=== PATIENT | female | born 1955 | race Caucasian/White ===

== ENCOUNTER → 2017-02-23 | Outpatient (CLI) | payer MEDICAID | LOC: FIMAGING 17:12 | PROVIDERS: ATTEND Family Medicine | DX: S92.412A Displaced fracture of proximal phalanx of left great toe, initial encounter for closed fracture (principal) ==

== ENCOUNTER 2017-07-19 15:12 | Emergency (ER) | payer MEDICAID ==
[2017-07-19 15:22] VITALS: TEMP 97.2
[2017-07-19] MEDS ORDERED: IBUPROFEN 600 MG TAB PO ONE (17:35)
--- NOTE | 2017-07-19 17:38 | EDPHY ---
H & P Time Seen by Provider: 07/19/17 17:23 HPI/ROS: CHIEF COMPLAINT: Unable to walk following the fall HISTORY OF PRESENT ILLNESS: This is a 62-year-old female with a history of developmental delay and chronic left hip dysplasia who was at her adult daycare program today. Her caregiver arrived to bring her home from the adult daycare center, she was informed by the staff that the patient had fallen. No further details regarding the fall are available. Caregiver noted that the patient was unable to ambulate. She typically walks with a walker. Patient has a significant amount of spasticity in her lower extremities and has a very antalagic gait. She seems to be complaining of discomfort in her left hip. There is no history of head injury or loss of consciousness. No nausea or vomiting since the event. No obvious traumatic findings to the upper extremities. Patient was in usual state of health prior to this event. REVIEW OF SYSTEMS: Aside from elements discussed in the HPI, a comprehensive 10-point review of systems was reviewed and is negative. PAST MEDICAL HISTORY: Significant developmental delay, nonverbal. SOCIAL HISTORY: Lives with a caregiver 28/05. VITAL SIGNS Reviewed by me. GENERAL: Developmental delay, nonverbal, obvious spasticity of the right upper extremity, and deformities of the lower extremities. HEENT: Atraumatic. Eyes: Pupils equal round reactive to light. No facial trauma noted. Mouth: Normal occlusion. Neck: supple with no adenopathy. No obvious tenderness to palpation. LUNGS: Clear to auscultation. Superficial abrasion is across the right scapula. No crepitus . CARDIAC: Regular rate and rhythm, no rubs, murmurs or gallops. ABDOMEN: Soft, no obvious tenderness, nondistended, bowel sounds normal. BACK: No trauma noted. Indication of tenderness over the lumbar spine or sacrum. EXTREMITIES: Patient seems uncomfortable when being rolled onto either the right or the left hip. Internal and external rotation at the right hip did not appear to be painful to the patient. Right lower extremity has some spastic features. Limited range of motion at the left hip. Does not appear to be uncomfortable for the patient. uncomfortable 1 No edema. Range of motion is normal throughout. NEURO: At baseline per caregiver. Patient herself is nonverbal. SKIN: Warm and dry, no rash. PSYCHIATRIC: Unable to assess Smoking Status: Never smoked Constitutional: Initial Vital Signs Temperature (C) 36.2 C 07/19/17 15:15 Allergies/Adverse Reactions: No Known Allergies Allergy (Unverified 07/19/17 15:21) Home Medications: Medication Instructions Recorded Miralax 17 gm (*) 07/19/17 Thyroid 07/19/17 Medical Decision Making - Diagnostics Imaging Results: Imaging Impressions Hip X-Ray 07/19/17 17:13 Impression: No acute osseous abnormalities. Congenital left hip dysplasia, subluxation and osteoarthrosis, similar to comparison exam. Pelvis CT 07/19/17 17:36 Impression: 1. No acute hip fracture. 2. Chronic left hip subluxation and remodeling related to developmental dysplasia of the hip. Findings discussed with Emergency Department physician, Rosibel Montoya MD, on , 1828 hours. ED Course/Re-evaluation: Patient's initial vital signs are quite limited. On my examination she is not tachycardic, having a heart rate of approximately 82. Brisk capillary refill. Pulses are 2+ and equal throughout. Patient's respiratory rate is unlabored. Rate of 16 on my examination. Plain x-rays were initially obtained which do not demonstrate any acute pathology in the left hip. On my examination it is difficult to tell which hip seems other the patient more. Caregiver is concerned regarding potential sacral or coccyx fracture. Patient did have a CT scan of her pelvis obtained which demonstrates no acute traumatic findings. There is chronic dysplasia of the left hip. Patient received ibuprofen 600 mg on arrival to the emergency department. Following her imaging studies the patient was ambulated utilizing a walker. She appears to be at her baseline gait per her caregiver. Caregiver is comfortable taking the patient home. She will continue to observe over the next 24-48 hours for the development of any new traumatic concerns, any ecchymosis developing, any swelling, or any indication regarding occult trauma at this point. Differential Diagnosis: Differential diagnosis of this patient's fall was considered including but not limited to intracranial injury, long bone and pelvic bone fracture, spinal injury, intrathoracic injury, extremity injury, intra-abdominal injury, lacerations, abrasions, and contusions. - Data Points Medications Given: Discontinued Medications Ibuprofen (Motrin) 600 mg PO EDNOW ONE Stop: 07/19/17 17:36 Last Admin: 07/19/17 17:43 Dose: Not Given Ibuprofen (Motrin Oral Solution) 600 mg PO EDNOW ONE Stop: 07/19/17 17:42 Last Admin: 07/19/17 17:50 Dose: 600 mg Departure - Departure Disposition: Home, Routine, Self-Care Clinical Impression: Left hip pain Condition: Good Instructions: Hip Pain (ED) Additional Instructions: 1. Use Tylenol and ibuprofen as directed on the packaging as needed for pain over the next few days. 2. Follow up with your primary care provider no later than Sunday. 3. Return to the ED for worsening of condition. Referrals: Luis Brasher MD [Primary Care Provider] - As per Instructions
[2017-07-19] MEDS ORDERED: IBUPROFEN SUSP 100 MG/5 ML UDCUP PO ONE (17:41)
== END 2017-07-19 19:52 | disposition home or self-care (01) ==
DX: S79.912A Unspecified injury of left hip, initial encounter (principal); W19.XXXA Unspecified fall, initial encounter; Y92.210 Daycare center as the place of occurrence of the external cause; Y99.8 Other external cause status

== ENCOUNTER 2017-07-20 13:29 | Emergency (ER) | payer MEDICAID ==
--- NOTE | 2017-07-20 15:06 | EDPHY ---
HPI/HX/ROS/PE/MDM Narrative: CHIEF COMPLAINT: Left hip pain HPI: The patient is a developmentally delayed and non-verbal 62 y/o female arriving with her caregiver for the second time in 24 hours for evaluation of hip pain. She fell yesterday at her adult daycare program and was evaluated in the ED. A CT of her pelvis showed no acute process at that time she was ambulatory with assistance at discharge. When her caregiver attempted to move her last night in bed the patient began screaming. Her caregiver describes trying to roll the patient onto her abdomen, but then the patient started screaming and has since been sitting with her knees drawn in towards her body. Her caregiver thinks the patient's left hip is hurting again. The patient is unable to contribute to history due to developmental delay. Her caregiver has not noticed signs of dysuria or UTI, trauma, dyspnea, or other symptoms. REVIEW OF SYSTEMS: Aside from elements discussed in the HPI, a comprehensive 10-point review of systems was reviewed and is negative. PMH: Significant developmental delay, non-verbal, left hip dysplasia Prior medical records reviewed including ED visit 07/19/17 for left hip pain. SOCIAL HISTORY: Caregiver at bedside. PCP: Dr. Brasher PHYSICAL EXAM: General:Patient is alert, in no acute distress. Chronic developmental delay noted ENT:Eyes are normal to inspection. ENT inspection normal. Neck: Normal inspection. Full range of motion. Respiratory:No respiratory distress. Breath sounds normal bilaterally. Cardiovascular: Regular rate and rhythm. Strong peripheral pulses. Normal cap refill. Abdomen:No apparent abdominal tenderness to palpation. There are no peritoneal signs. There are normal bowel sounds. Back: Normal to inspection. No apparent tenderness to palpation. Skin: Normal color. No rash. Warm and dry. Extremities: Baseline contractures to both arms and hands. No apparent hip tenderness with palpation or ROM. Neuro: Alert. Mental status at baseline per caregiver. Moving all extremities. ED Course: IV established. Basic labs and UA ordered. Abd/pelvis CT ordered. 1730: Reassessed patient and discussed work up with her caregiver. Her CT shows 4 fractured ribs on the left side - no evidence of solid organ injury or PTX. She will be discharged with script for Lortab elixir and standard rib fracture care and follow up instructions. Return precautions given. Caregiver agrees with plan. - Data Points Imaging: Discussed imaging studies w/ outbound call center representative Radiologist, I viewed and interpreted images myself Laboratory Results: Laboratory Results 07/20/17 15:18 07/20/17 15:18 07/20/17 07/20/17 15:18 15:18 WBC 11.77 10^3/uL H 10^3/uL (3.80-9.50) RBC 3.89 10^6/uL L 10^6/uL (4.18-5.33) Hgb 11.1 g/dL L g/dL (12.6-16.3) Hct 35.2 % L % (38.0-47.0) MCV 90.5 fL fL (81.5-99.8) MCH 28.5 pg pg (27.9-34.1) MCHC 31.5 g/dL L g/dL (32.4-36.7) RDW 14.4 % % (11.5-15.2) Plt Count 276 10^3/uL 10^3/uL (150-400) MPV 10.8 fL fL (8.7-11.7) Neut % (Auto) 83.3 % H % (39.3-74.2) Lymph % (Auto) 8.2 % L % (15.0-45.0) [place] % (Auto) 7.6 % % (4.5-13.0) Eos % (Auto) 0.0 % L % (0.6-7.6) Baso % (Auto) 0.3 % % (0.3-1.7) Nucleat RBC Rel Count 0.0 % % (0.0-0.2) Absolute Neuts (auto) 9.81 10^3/uL H 10^3/uL (1.70-6.50) Absolute Lymphs (auto) 0.96 10^3/uL L 10^3/uL (1.00-3.00) Absolute Monos (auto) 0.89 10^3/uL H 10^3/uL (0.30-0.80) Absolute Eos (auto) 0.00 10^3/uL L 10^3/uL (0.03-0.40) Absolute Basos (auto) 0.04 10^3/uL 10^3/uL (0.02-0.10) Absolute Nucleated RBC 0.00 10^3/uL 10^3/uL (0-0.01) Immature Gran % 0.6 % % (0.0-1.1) Immature Gran # 0.07 10^3/uL 10^3/uL (0.00-0.10) Sodium 142 mEq/L mEq/L (134-144) Potassium 4.1 mEq/L mEq/L (3.5-5.2) Chloride 104 mEq/L mEq/L (97-110) Carbon Dioxide 26 mEq/l mEq/l (22-31) Anion Gap 12 mEq/L mEq/L (8-16) BUN 17 mg/dL mg/dL (7-23) Creatinine 0.8 mg/dL mg/dL (0.6-1.0) Estimated GFR > 60 Glucose 103 mg/dL H mg/dL (70-100) Calcium 9.7 mg/dL mg/dL (8.5-10.4) General Time Seen by Provider: 07/20/17 14:49 Initial Vital Signs: Initial Vital Signs Temperature (C) 36.7 C 07/20/17 13:35 Heart Rate 98 07/20/17 13:35 Respiratory Rate 16 07/20/17 13:35 Blood Pressure 159/97 H 07/20/17 13:35 O2 Sat (%) 91 L 07/20/17 13:35 O2 Delivery Mode Room Air Allergies/Adverse Reactions: No Known Allergies Allergy (Unverified 07/19/17 15:21) Home Medications: Medication Instructions Recorded Miralax 17 gm (*) 07/19/17 Thyroid 07/19/17 Hydrocod/APAP 7.5/325 in 15Ml 5 - 10 ml PO Q4 PRN #90 ml 07/20/17 [Hycet Oral Liquid (*) 7.5MG-325MG/15ML] Departure - Departure Disposition: Home, Routine, Self-Care Clinical Impression: Multiple rib fractures Condition: Good Instructions: Hydrocodone/Acetaminophen (By mouth), Rib Fracture (ED) Additional Instructions: 1. Administer Lortab elixir as prescribed as needed for pain. 2. Rib fractures can take many weeks to heal. Follow up with the patient's primary care provider for unimproving symptoms over the next couple weeks. 3. Return to the ED for worsening of condition. Referrals: Luis Brasher MD [Primary Care Provider] - As per Instructions Prescriptions: Hydrocod/APAP 7.5/325 in 15Ml [Hycet Oral Liquid (*) 7.5MG-325MG/15ML] 5 - 10 ml PO Q4 PRN #90 ml PRN Reason: Pain, Severe Report Scribed for: Mathew Louis Report Scribed by: Kelly Nickerson Date of Report: 07/20/17 Time of Report: 15:51 Physician Review and Approval Statement: Portions of this note were transcribed by an ED scribe. I personally performed the history, physical exam, and medical decision making; and confirm the accuracy of the information in the transcribed note.
[2017-07-20 15:43] LABS: % IMMATURE GRANULYOCYTES 0.6 % (0.0-1.1); ABSOLUTE IMMATURE GRANULOCYTES 0.07 10^3/uL (0.00-0.10); ADD DIFF? NO; ADD MORPH? NO; ADD SCAN? NO; ATYPICAL LYMPHOCYTE FLAG 0 (0-99); FRAGMENT RBC FLAG 0 (0-99); HEMATOCRIT 35.2 % (38.0-47.0); HEMOGLOBIN 11.1 g/dL (12.6-16.3); LEFT SHIFT FLG 0 (0-99); LIPEMIA HEMOLYSIS FLAG 80 (0-99); MEAN CELL HEMOGLOBIN 28.5 pg (27.9-34.1); MEAN CELL HEMOGLOBIN CONCENTR. 31.5 g/dL (32.4-36.7); MEAN CELL VOLUME 90.5 fL (81.5-99.8); MEAN PLATELET VOLUME 10.8 fL (8.7-11.7); PLATELET CLUMPS FLAG 30 (0-99); PLATELET COUNT 276 10^3/uL (150-400); RED BLOOD CELL COUNT 3.89 10^6/uL (4.18-5.33); RED CELL DISTRIBUTION WIDTH 14.4 % (11.5-15.2)
[2017-07-20 15:56] LABS: ANION GAP 12 mEq/L (8-16); CALCIUM 9.7 mg/dL (8.5-10.4); CARBON DIOXIDE 26 mEq/l (22-31); CHLORIDE 104 mEq/L (97-110); CREATININE 0.8 mg/dL (0.6-1.0); GLOMERULAR FILTRATION RATE > 60; GLUCOSE 103 mg/dL (70-100); POTASSIUM 4.1 mEq/L (3.5-5.2); SODIUM 142 mEq/L (134-144)
[2017-07-20] MEDS ORDERED: IOPAMIDOL (ISOVUE-300) 100 ML BTL ONE (16:41)
[2017-07-20] MEDS ORDERED: HYDROCOD/APAP 7.5/325 IN 15ML UDCUP PO ONE (17:35)
[2017-07-20 18:53] VITALS: BP 138/98; PULSE 85; RESP 20; TEMP 97.9; O2SAT 90
== END 2017-07-20 18:53 | disposition home or self-care (01) ==
DX: S22.42XD Multiple fractures of ribs, left side, subsequent encounter for fracture with routine healing (principal); W19.XXXD Unspecified fall, subsequent encounter
CPT/HCPCS: Q9967

== ENCOUNTER 2018-06-30 19:28 | Inpatient (IN) | payer MEDICAID ==
--- NOTE | 2018-06-30 20:16 | EDPHY ---
H & P Stated Complaint: cough x 1 week causing vomiting seen by pcp on06/25 Time Seen by Provider: 06/30/18 20:14 - Personal History Current Tetanus/Diphtheria Vaccine: Yes Current Tetanus Diphtheria and Acellular Pertussis (TDAP): Yes - Medical/Surgical History Hx Asthma: No Hx Chronic Respiratory Disease: No Hx Diabetes: No Hx Cardiac Disease: No Hx Renal Disease: No Hx Cirrhosis: No Hx Alcoholism: No Hx HIV/AIDS: No Hx Splenectomy or Spleen Trauma: No Other PMH: Developmentally delayed. Hip displagia. RA. - Social History Smoking Status: Never smoked Constitutional: Initial Vital Signs Temperature (C) 37.2 C 06/30/18 19:33 Heart Rate 83 06/30/18 19:33 Respiratory Rate 20 06/30/18 19:33 Blood Pressure 119/70 06/30/18 19:33 O2 Sat (%) 86 L 06/30/18 19:33 O2 Delivery Mode Nasal Cannula O2 (L/minute) 2 Allergies/Adverse Reactions: No Known Allergies Allergy (Unverified 07/19/17 15:21) Home Medications: Medication Instructions Recorded Guar Gum [Benefiber/Nutrisource 1 each PO DAILY 06/30/18 Fiber (*)] Herbals/Supplements -Info Only 1 ea PO DAILY 06/30/18 Levothyroxine [Synthroid 50 mcg 50 mcg PO DAILY06 06/30/18 (*)] Polyethylene Glycol 3350 [Miralax 17 gm PO EVERY OTHER DAY 06/30/18 17 gm (*)] Medical Decision Making - Diagnostics Imaging Results: Imaging Impressions Chest X-Ray 06/30/18 19:54 Impression: No pneumonia. Imaging: I viewed and interpreted images myself ED Course/Re-evaluation: CHIEF COMPLAINT: Cough, nausea HISTORY OF PRESENT ILLNESS: The patient is a developmentally delayed 63 y/o female arriving with her skin care specialist for a cough and nausea, onset 1 week ago. She was seen by her PCP on 06/25 , 5 days ago, without a clear diagnosis. Today the coughing exacerbated; she has been vomiting due to the coughing. It is unknown if she has aspirated on the emesis. REVIEW OF SYSTEMS: Unable to obtain secondary to patient's developmental delay. PHYSICAL EXAM: HR, BP, O2 Sat, RR. Temp noted General Appearance: Alert, well hydrated, and non-toxic appearing. Head: Atraumatic without scalp tenderness or obvious injury Eyes: Pupils equal, round, reactive to light and accommodation, EOMI, no trauma , no injection. Ears: Clear bilaterally, no perforation, normal landmarks Nose: Atraumatic, no rhinorrhea, clear. Throat: There is no erythema or exudates, no lesions, normal tonsils, mucus membranes moist. Neck: Supple, 2+ carotid upstroke, nontender, no lymphadenopathy. Respiratory: Coarse rhonchi throughout. No retractions, no distress, no wheezes , and no accessory muscle use. Cardiovascular: Regular rate and rhythm, no murmurs, rubs, or gallops. Bilateral carotid, radial, dorsalis pedis, and posterior tibial pulses intact. Good capillary refill all extremities. Gastrointestinal: Abdomen is soft, nontender, non-distended, no masses, no rebound, no guarding, no peritoneal signs. Musculoskeletal: Normal active ROM of all extremities, atraumatic. Neurological: Alert, appropriate, and interactive. The patient has normal DTRs and non-focal cranial nerves, motor, sensory, and cerebellar exam. Skin: No rashes, good turgor, no nodules on palpation. 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 MEDICAL DECISION MAKING: The patient is a developmentally delayed 63 y/o female arriving with her skin care specialist for a cough and nausea, onset 1 week ago. On exam she has coarse rhonchi throughout. Chest x-ray and labs ordered; DuoNeb administered. 2054: I consulted with Dr. Posada, hospitalist, regarding this patient. He accepts admission of this patient for post-tussive emesis, probable aspiration pneumonia, and hypoxemia. Her lactate is normal; she does not meet septic criteria a. 3gm IV Unasyn administered. 2105: I reviewed patient's chest x-ray, there is a right-sided aspirational pneumonia. 2220: Patient has been transferred to the floor. - Data Points Laboratory Results: Laboratory Results 06/30/18 21:30 06/30/18 21:30 06/30/18 06/30/18 06/30/18 21:30 21:30 20:43 WBC 8.86 10^3/uL 10^3/uL (3.80-9.50) RBC 4.76 10^6/uL 10^6/uL (4.18-5.33) Hgb 13.5 g/dL g/dL (12.6-16.3) Hct 42.8 % % (38.0-47.0) MCV 89.9 fL fL (81.5-99.8) MCH 28.4 pg pg (27.9-34.1) MCHC 31.5 g/dL L g/dL (32.4-36.7) RDW 14.1 % % (11.5-15.2) Plt Count 290 10^3/uL 10^3/uL (150-400) MPV 10.5 fL fL (8.7-11.7) Neut % (Auto) 59.6 % % (39.3-74.2) Lymph % (Auto) 20.3 % % (15.0-45.0) [place] % (Auto) 13.2 % H % (4.5-13.0) Eos % (Auto) 6.1 % % (0.6-7.6) Baso % (Auto) 0.5 % % (0.3-1.7) Nucleat RBC Rel Count 0.0 % % (0.0-0.2) Absolute Neuts (auto) 5.28 10^3/uL 10^3/uL (1.70-6.50) Absolute Lymphs (auto) 1.80 10^3/uL 10^3/uL (1.00-3.00) Absolute Monos (auto) 1.17 10^3/uL H 10^3/uL (0.30-0.80) Absolute Eos (auto) 0.54 10^3/uL H 10^3/uL (0.03-0.40) Absolute Basos (auto) 0.04 10^3/uL 10^3/uL (0.02-0.10) Absolute Nucleated RBC 0.00 10^3/uL 10^3/uL (0-0.01) Immature Gran % 0.3 % % (0.0-1.1) Immature Gran # 0.03 10^3/uL 10^3/uL (0.00-0.10) PT 12.4 SEC SEC (12.0-15.0) INR 0.90 (0.83-1.16) APTT 27.2 SEC SEC (23.0-38.0) VBG Lactic Acid Sodium 141 mEq/L mEq/L (135-145) Potassium 4.7 mEq/L mEq/L (3.3-5.0) Chloride 100 mEq/L mEq/L (97-110) Carbon Dioxide 32 mEq/l H mEq/l (22-31) Anion Gap 9 mEq/L mEq/L (8-16) BUN 20 mg/dL mg/dL (7-23) Creatinine 1.0 mg/dL mg/dL (0.6-1.0) Estimated GFR 56 Glucose 112 mg/dL H mg/dL (70-100) Calcium 9.9 mg/dL mg/dL (8.5-10.4) Total Bilirubin 0.2 mg/dL mg/dL (0.1-1.4) 06/30/18 20:30 WBC RBC Hgb Hct MCV MCH MCHC RDW Plt Count MPV Neut % (Auto) Lymph % (Auto) [place] % (Auto) Eos % (Auto) Baso % (Auto) Nucleat RBC Rel Count Absolute Neuts (auto) Absolute Lymphs (auto) Absolute Monos (auto) Absolute Eos (auto) Absolute Basos (auto) Absolute Nucleated RBC Immature Gran % Immature Gran # PT INR APTT VBG Lactic Acid 0.9 mmol/L mmol/L (0.7-2.1) Sodium Potassium Chloride Carbon Dioxide Anion Gap BUN Creatinine Estimated GFR Glucose Calcium Total Bilirubin Medications Given: Albuterol/Ipratropium (Duoneb) 3 ml IH QID MOE Stop: 12/27/18 20:59 Last Admin: 06/30/18 21:51 Dose: 3 ml Discontinued Medications Albuterol/Ipratropium (Duoneb) 3 ml IH EDNOW ONE Stop: 06/30/18 20:19 Last Admin: 06/30/18 20:24 Dose: 3 ml Azithromycin (Zithromax Oral Liquid) 500 mg PO ONCE ONE Stop: 06/30/18 22:16 Last Admin: 06/30/18 22:16 Dose: 500 mg Ampicillin Sodium/Sulbactam (Sodium 3 gm/ Sodium Chloride) 100 mls @ 200 mls/ hr IV EDNOW ONE PRN Reason: Protocol Stop: 06/30/18 21:27 Last Admin: 06/30/18 21:40 Dose: 100 mls Departure - Departure Disposition: [facility] Inpatient Acute Clinical Impression: Post-tussive emesis, Cough, Hypoxemia Aspiration pneumonia Qualifiers: Aspiration pneumonia type: due to vomit Laterality: right Lung location: middle lobe of lung Qualified Code(s): J69.0 - Pneumonitis due to inhalation of food and vomit Condition: Fair Referrals: Luis Brasher MD [Primary Care Provider] - As per Instructions Report Scribed for: Werner Zavala Report Scribed by: Tawana Iqbal Date of Report: 06/30/18 Time of Report: 20:16
[2018-06-30] MEDS ORDERED: IPRATROPIUM/ALBUTEROL 3 ML DEYVIAL IH ONE (20:18)
[2018-06-30] MEDS ORDERED: AMPICILLIN/SULBACTAM 3 GM in NS 100 ML IV ONE (20:58)
[2018-06-30] MEDS ORDERED: ONDANSETRON DISINTEGRATING 4 MG TAB PO PRN (20:59)
[2018-06-30] MEDS ORDERED: ONDANSETRON 4 MG/2 ML VIAL IVP PRN (20:59)
[2018-06-30] MEDS ORDERED: ACETAMINOPHEN 325 MG TAB PO PRN (20:59)
[2018-06-30] MEDS ORDERED: PROMETHAZINE HCL 25 MG/ML INJ IVP PRN (20:59)
[2018-06-30] MEDS ORDERED: NS 1,000 ML IV SCH (21:00)
[2018-06-30] MEDS ORDERED: AZITHROMYCIN 250 MG TAB PO ONE (21:02)
[2018-06-30 21:41] LABS: PLATELET COUNT 290 10^3/uL (150-400)
[2018-06-30] MEDS: IPRATROPIUM/ALBUTEROL 3 ML DEYVIAL IH SCH (21:51)
--- NOTE | 2018-06-30 21:52 | GHP ---
[f rep st] HISTORY AND PHYSICAL DATE OF ADMISSION: 06/30/2018 CHIEF COMPLAINT: Cough. HISTORY OF PRESENT ILLNESS: This is a 63-year-old female with severe developmental delay, nonverbal, who was brought in by her caregiver. Apparently , for the last week she has been coughing. She has had a runny nose as well. She has been coughing so much that she has been vomiting. She has had trouble keeping a lot of food down. She was brought here about 9 days ago for routine lab draw, her caregiver believes that is where she was exposed. There is 1 other person who is independent but with developmental delay at her house, but this other person is not sick. Her caregiver has been coughing but not as significantly. She has had a fever as high as 99, but nothing higher than that. She does not typically cough after she eats. PAST MEDICAL/SURGICAL HISTORY: 1. Hypothyroid. 2. Developmental delay. MEDICATIONS: Please see medication list. ALLERGIES: No known drug allergies. FAMILY HISTORY: Is unknown. SOCIAL HISTORY: She lives with a caregiver. REVIEW OF SYSTEMS: Unobtainable given the patient's condition. POWER OF TIN PLATER: Phone number [phone]. PHYSICAL EXAM: VITAL SIGNS: Blood pressure 119/70, heart rate 83, respiration rate 20, satting 96% on room air. Temperature is 37.2. GENERAL: The patient is a pleasant female who is nonverbal although cooperative with my exam. HEENT : Shows her to be normocephalic, atraumatic. CARDIOVASCULAR: Regular rate and rhythm. No murmurs, rubs, or gallops. PULMONARY: From the anterior shows her to be clear to auscultation bilaterally. She is not in any respiratory distress. ABDOMEN: Shows her to be soft. She does not grimace with palpation. SKIN: Shows no rash. : Shows no Rodrig[place]. NEUROLOGIC: Shows her to be nonverbal. She is moving all extremities. Cranial nerves are grossly intact. PSYCHIATRIC: Exam is unobtainable. LABORATORIES: Currently has a lactate of 0.9. DATA: 1. I discussed this with Dr. Zavala, will admit to med/surg. 2. I personally viewed and interpreted her chest x-ray. This shows possible right base atelectasis. IMPRESSION AND PLAN: 1. Bronchitis with posttussive emesis: There is no clear pneumonia on chest x- ray, and no white count or fever. I will treat for bronchitis now with azithromycin, but recheck a chest x-ray in the morning - if there is a pneumonia seen there then consider treating for aspiration pneumonia. Respiratory pathogen panel is pending. She is currently requiring a small amount of oxygen as she is mildly hypoxic without. We will provide her with inhalers. Would consider steroids. I think if she is stable tomorrow with otherwise negative workup, she can likely be discharged. 2. Hypothyroid: Continue her thyroid medication. 3. Code status: Discussed with her caregiver who tells me that she would like to be do not resuscitate. This is appropriate. She apparently does have a MOST form. However, it is not with her at this time. I will put her in as a do not resuscitate now. 4. Venous thromboembolism risk: Moderate. Lovenox. 5. Need to check a full set of labs. /[id number]/MODL MTDD
[2018-06-30 22:04] LABS: INR 0.9 (0.83-1.16); PROTIME(PATIENT) 12.4 SEC (12.0-15.0)
[2018-06-30] MEDS ORDERED: AZITHROMYCIN 200 MG/5 ML 22.5 ML BOTTLE PO ONE (22:15)
[2018-06-30] MEDS ORDERED: AZITHROMYCIN 100 MG/5 ML BOTTLE 15 ML PO ONE (22:15)
[2018-07-01] MEDS ORDERED: AMPICILLIN/SULBACTAM 3 GM in NS 100 ML IV SCH
[2018-07-01 04:55] LABS: PLATELET COUNT 287 10^3/uL (150-400)
[2018-07-01] MEDS: IPRATROPIUM/ALBUTEROL 3 ML DEYVIAL IH SCH ×4 (06:33→21:48)
[2018-07-01] MEDS: LEVOTHYROXINE 50 MCG TAB PO SCH (07:10)
[2018-07-01] MEDS ORDERED: AZITHROMYCIN 250 MG TAB PO SCH (09:00)
[2018-07-01] MEDS ORDERED: ENOXAPARIN 40 MG/0.4 ML SYR SC SCH (09:00)
[2018-07-01] MEDS: AZITHROMYCIN 200 MG/5 ML 22.5 ML BOTTLE PO SCH (09:58)
--- NOTE | 2018-07-01 12:16 | HOSPPROG ---
Hospitalist Progress Note Assessment/Plan: * Bronchitis - probable viral, although resp PCR negative -PO azithro -supportive care * Hypoxia -suspect borderline stats at baseline due to body habitus -hypoxia persists, won't keep O2 on -try to wean back to RA prior to discharge * Severe DD * Post-tussive vomiting -advance diet Subjective: No events Objective: Vital Signs Temp Pulse Resp BP Pulse Ox 36.2 C 91 18 107/77 86 L 07/01/18 11:49 07/01/18 11:49 07/01/18 11:49 07/01/18 11:49 07/01/18 11:49 Microbiology 06/30/18 21:40 Respiratory Panel (PCR) - Final Nasal, Sinus - Swab No Organism Detected Laboratory Results 07/01/18 04:37 07/01/18 04:37 06/30/18 07/01/18 07/02/18 05:59 05:59 05:59 Intake Total 1200 Balance 1200 PT 12.4 SEC (12.0-15.0) 06/30/18 20:43 INR 0.90 (0.83-1.16) 06/30/18 20:43 OLD CHART REVIEW - only 2 previous ER visits, minimal complications in the past CXR viewed, my personal interpretation is - negative - Physical Exam Constitutional: no apparent distress, appears nourished, not in pain Cardiovascular: regular rate and rhythym, no murmur, rub, or gallop Respiratory: no respiratory distress, no rales or rhonchi, clear to auscultation Gastrointestinal: normoactive bowel sounds, soft, non-tender abdomen, no palpable masses Skin: no rashes or abrasions, no fluctuance, no induration Psychiatric: poor insight, poor judgement, poor memory, other (nonverbal), No interacting appropriately, No agitated ICD10 Worksheet Patient Problems: Problems Problem Status Onset Aspiration pneumonia Acute Cough Acute Hypoxemia Acute Post-tussive emesis Acute
[2018-07-01] MEDS: BENEFIBER/NUTRISOURCE FIBER PKT 1 EACH PO SCH (12:49)
--- NOTE | 2018-07-01 14:54 | PDMN ---
Medical Necessity Medical necessity: MCG 63 y/o w/ severe developmental delay, nonverbal, presents w/ bronchitis. Continuing supportive care needed w/ antibx, monitoring new hypoxia development (86% on RA, Oxygen started via NC), and post-tussive vomiting. Continue scheduled nebs. Status changed to inpatient per MD order @ 1212 to cont monitoring and treatment for another MN.
--- NOTE | 2018-07-01 16:47 | ASMTCMCOM ---
CM Note CM Note Notes: Developmentally delayed/nonverbal pt in for bronchitis and hypoxia. Pt resides with caregiver of 20 years, is involved with [employer] Nurse CM is Maryam Mckeon [phone]. OT/PT clear pt. CM to follow. Date Signed: 07/01/2018 04:47 PM Electronically Signed By:NATALIE Contreras
[2018-07-02] MEDS: LEVOTHYROXINE 50 MCG TAB PO SCH (06:12)
[2018-07-02] MEDS: AZITHROMYCIN 200 MG/5 ML 22.5 ML BOTTLE PO SCH (08:26)
[2018-07-02] MEDS: BENEFIBER/NUTRISOURCE FIBER PKT 1 EACH PO SCH ×2 (08:29→08:30)
[2018-07-02] MEDS ORDERED: POLYETHYLENE GLYCOL 3350 17 GM PKT PO SCH (09:00)
--- NOTE | 2018-07-02 16:57 | ASMTCMCOM ---
CM Note CM Note Notes: [facility] received paperwork demonstrating pt court appointed guardians are Marycarmen gandara and Korina Fletcher [phone] of [facility] Date Signed: 07/02/2018 04:56 PM Electronically Signed By:NATALIE Contreras
--- NOTE | 2018-07-02 18:49 | HOSPPROG ---
Hospitalist Progress Note Assessment/Plan: * Bronchitis - probable viral, although resp PCR negative -PO azithro -supportive care * Hypoxia -hypoxia persists, won't keep O2 on -try to wean back to RA prior to discharge -sats still low 80s today on RA -per caregiver sat usually high 90s -suspect element of positioning - try to optimize * Severe DD * Post-tussive vomiting -advance diet Hopefully discharge tomorrow if O2 sats improved Subjective: No change, non verbal Objective: Vital Signs Temp Pulse Resp BP Pulse Ox 36.5 C 66 16 96/76 L 91 L 07/02/18 15:53 07/02/18 15:53 07/02/18 15:53 07/02/18 15:53 07/02/18 15:53 07/01/18 07/02/18 07/03/18 05:59 05:59 05:59 Intake Total 240 300 Output Total 0 Balance 240 300 PT 12.4 SEC (12.0-15.0) 06/30/18 20:43 INR 0.90 (0.83-1.16) 06/30/18 20:43 - Physical Exam Constitutional: no apparent distress, appears nourished, not in pain Cardiovascular: regular rate and rhythym, no murmur, rub, or gallop Gastrointestinal: normoactive bowel sounds, soft, non-tender abdomen, no palpable masses Skin: no rashes or abrasions, no fluctuance, no induration Neurologic: No AAOx3 Psychiatric: poor insight, poor judgement, poor memory, other (non verbal, does not follow commands), No interacting appropriately, No thought process linear, No anxious, No agitated ICD10 Worksheet Patient Problems: Problems Problem Status Onset Aspiration pneumonia Acute Cough Acute Hypoxemia Acute Post-tussive emesis Acute
[2018-07-03] MEDS: LEVOTHYROXINE 50 MCG TAB PO SCH (04:39)
[2018-07-03] MEDS: AZITHROMYCIN 200 MG/5 ML 22.5 ML BOTTLE PO SCH (10:20)
[2018-07-03] MEDS: BENEFIBER/NUTRISOURCE FIBER PKT 1 EACH PO SCH (10:21)
[2018-07-03 11:37] VITALS: BP 121/77
--- NOTE | 2018-07-03 11:38 | ASMTLACE ---
LACE Length of stay for Answers: 2 days current admission Acuity / Level of Answers: Yes Care: Did the patient have an inpatient admission? Comorbidities - select Answers: Other Notes: Developmental all that apply delay; Hypothyroid # of Emergency department Answers: 1-2 visits in the last 6 months Score: 7 Date Signed: 07/03/2018 11:38 AM Electronically Signed By:Kristy Gilmore RN
--- NOTE | 2018-07-03 11:38 | ASMTCMCOM ---
CM Note CM Note Notes: Pt discharging home with caregiver, she has been cleared by PT/OT for home. CM called guardian Isaías [phone] and left her a vm regarding dc today. CW was also here to see pt today and is aware of dc. DC Plan: Home with caregiver Date Signed: 07/03/2018 11:37 AM Electronically Signed By:Kristy Gilmore RN
--- NOTE | 2018-07-03 16:13 | PDDCSUM ---
Discharge Summary Discharge Summary: Date of Admission: Date of Discharge: Consultants: none Discharge Diagnoses: 1. Bronchitis, likely viral 2. Acute hypoxemia, resolved 3. Post-tussive emesis 4. Severe developmental delay Brief Hospital Course by Problem: 1. Bronchitis: CXR x2 without infiltrate. RVP negative but overall suspect viral process. Discharged to complete course of azithromycin. 2. Acute hypoxemia: Resolved prior to discharge. 3. Post-tussive emesis: Has anti-emetics. 4. Severe developmental delay: Has 24 hour caregivers. Follow Up Plan: 1. PCP visit to ensure resolution of symptoms Medications at Discharge: Please see EMR for complete list. Added azithromycin, guaifenesin this admission. Physical Exam: Vitals reviewed. Patient nonverbal (baseline). Lungs without wheezes and improved air movement. Regular rate on heart exam. No abdominal tenderness. No lower extremity edema.
== END 2018-07-03 12:20 | disposition home or self-care (01) | DRG 145 ==
LOC: F3N 22:30 → OBSVTOIN 07-01 12:12 → F3E 07-02 20:00
PROVIDERS: ADMIT Student in an Organized Health Care Education/Training Program; ATTEND Student in an Organized Health Care Education/Training Program
DX: J20.8 Acute bronchitis due to other specified organisms (principal); R09.02 Hypoxemia; R62.50 Unspecified lack of expected normal physiological development in childhood; E03.9 Hypothyroidism, unspecified; M06.9 Rheumatoid arthritis, unspecified
CPT/HCPCS: 92610-GN; 96365; 97162-GP; 97165-GO; G0378; J0295; J1650